=== PATIENT | male | born 1955 | race African-American/Black ===

== ENCOUNTER 2020-08-01 09:36 | Emergency (ER) | payer OTHER ==
[2020-08-01 10:45] LABS: Bacteria/HPF None Seen HPF (None Seen); Bilirubin Negative (Negative); Blood, Urine Negative (Negative); Clarity Clear (Clear); Glucose, Urine (Dipstick) Normal (Negative); Ketone, Urine Negative (Negative); Leukocyte 25 Leu/uL (Negative); Nitrite Negative (Negative); Protein, Urine (Dipstick) Negative (Neg-Trace); RBC/HPF None Seen HPF (0-3); Specific Gravity, Urine 1.019 (1.002-1.036); Squamous Epithelial None Seen HPF (0-3); Urobilinogen 3 mg/dL (Less than 2); WBC/HPF 0-3 HPF (0-3); pH, Urine 6.5 (5.0-9.0)
[2020-08-01 10:46] LABS: Hemoglobin 17.1 g/dL (14.0-18.0); Mean Corpuscular HGB CONC 32.8 g/dL (32.0-36.0); Mean Corpuscular Hemoglobin 29.5 pg (27.0-31.0); Mean Corpuscular Volume 89.9 fL (78.0-98.0); Mean Platelet Volume 9.4 fL (7.4-10.4); Platelet Count 146 thou/uL (130-400); RBC Distribution Width 13.3 % (11.5-14.5); Red Blood Cell (RBC) Count 5.81 mill/uL (4.70-6.10); White Blood Cell (WBC) Count 5.3 thou/uL (4.8-10.8)
[2020-08-01 11:05] LABS: Eosinophils 2 % (0-10); Lymphocytes 53 % (21-51); MDiff Complete? YES; Monocytes 4 % (0-10); Neutrophil 39 % (42-75); RBC Morphology Normal; Reactive Lymphocytes 1 % (0-10)
[2020-08-01 15:17] LABS: Albumin 4.1 g/dL (3.4-4.8)
[2020-08-01 15:18] LABS: Chloride 105 mmol/L (98-107); Potassium 4.6 mmol/L (3.5-5.1); Sodium 138 mmol/L (136-145)
[2020-08-01 15:19] LABS: Calcium 9.1 mg/dL (7.8-10.44); Glucose 89 mg/dL (80-115)
[2020-08-01 15:20] LABS: Globulin 3.3 g/dL (2.4-3.5); Protein, Total 7.4 g/dL (5.8-8.1)
[2020-08-01 15:21] LABS: Anion Gap 18 mmol/L (10-20); Bilirubin, Total 0.8 mg/dL (0.2-1.2); Carbon Dioxide 20 mmol/L (23-31)
[2020-08-01 15:22] LABS: Alkaline Phosphatase 58 U/L (40-110)
[2020-08-01 15:23] LABS: Calc. Creatinine Clearance 0 mL/min (70-130)
[2020-08-01 15:24] LABS: BUN (Urea Nitrogen) 12 mg/dL (8.4-25.7)
[2020-08-01 15:25] LABS: ALT (SGPT) 16 U/L (8-55); AST (SGOT) 24 U/L (5-34)
[2020-08-01 15:26] LABS: Lipase 95 U/L (8-78)
== END 2020-08-02 08:45 | disposition short-term general hospital (02) ==
LOC: EEVIPCON 09:36 → ERS 09:36
DX: G45.9 Transient cerebral ischemic attack, unspecified (principal)
CPT/HCPCS: 70450; 80053; 81003; 81015; 83690; 84484; 85025; 93005